=== PATIENT | female | born 1980 | race Caucasian/White ===

== ENCOUNTER 2016-08-19 18:32 | Emergency (ER) | payer OTHER ==
--- NOTE | 2016-08-19 20:47 | ED CLINICAL REPORT ---
Clinical Report - Physicians/Mid Levels [facility] [address] [place] [address] 08/19/2016 18:33 Patient: DREW WINCHESTER Time Seen: 1845; upon arrival, initial patient contact, initial documentation, patient care assumed. Arrived- By private vehicle. Historian- patient. HISTORY OF PRESENT ILLNESS Chief Complaint: ABDOMINAL PAIN. At its maximum, severity described as moderate. When seen in the E.D., severity described as moderate. Modifying factors- worsened by deep breaths. Not relieved by anything. It is described as "pain" and burning and pressure. No radiation. It is described as located in the epigastric area and in the upper abdomen. This started today and is still present. It was abrupt in onset and has been constant. The patient has had nausea. No loss of appetite. She has had moderate vomiting (x6 episodes today). The vomiting has occurred several times. No bilious emesis, feculent emesis, blood-tinged emesis, coffee-grounds emesis or frankly bloody emesis. No unusually dark emesis. No additional abdominal pain. (says pain feels similar to when she blood clot, but also feels like her pancreatitis, or her ibs). No recent travel. Similar symptoms previously: Chronically, as bad. Recent medical care: Not recently seen/assessed. REVIEW OF SYSTEMS No constipation, black stools, hematemesis, difficulty with urination or pain with urination. No urinary frequency, bloody stools, fever, difficulty breathing or cough. Denies current . The patient complains of moderate, pressure-like, burning central chest pain, currently moderate, associated with nausea and vomiting. No radiation or modifying factors. All systems otherwise negative, except as recorded above. PAST HISTORY See nurses notes. PROBLEMS: Lumbar Strain. Pelvic Inflammatory Disease. URI. Strep Throat. Pharyngitis. Sick Contact. Pneumonia. Back Pain. Back Injury. Lumbar Radiculopathy. Rectal Bleed. Constipation. Proctitis. UTI - Urinary Tract Infection. Gastroenteritis. Pulmonary Embolism. Asthma. Allergic Rhinitis. Sinusitis. Bronchitis. Cellulitis. Atypical Chest Pain. Acute Pain. Anemia. Pancreatitis. Hypertension. Migraine Headache. Depression. Anxiety Reaction. Irritable Bowel Syndrome. Bipolar Disorder. DVT - Deep Venous Thrombosis. --18:43 Denisse Quintero R.N. ADDITIONAL SURGERIES: Ablation (cervical). Cholecystectomy. Colonoscopy. . Endoscopy. [place]oss[place] filter. Hernia Repair. Umbilical Hernia Repair. --18:43 Denisse Quintero R.N. SOCIAL HISTORY Light tobacco smoker. Occasional alcohol use. History of occasional drug use: marijuana. No recent travel. Is a local resident. She lives with spouse. FAMILY HISTORY Negative. ADDITIONAL NOTES The nursing notes have been reviewed with agreement regarding the chief complaint, HPI, ROS, PMH and patient medications and allergies. PHYSICAL EXAM Vital Signs: 08/19/2016 18:48 BP: 117/94. HR: 108. RR: 18. O2 saturation: 100%. Pain level now: 8/10. Have been reviewed as abnormal. Blood pressure normal. Tachycardic. Respiratory rate normal. Temperature: 98.3 oral- temperature normal. Oxygen saturation normal. Appearance: Alert. Oriented X3. No acute distress. Eyes: Pupils equal, round and reactive to light. Eyes normal inspection. ENT: Ears normal. Nose normal. Pharynx normal. Neck: Normal inspection. Neck supple. CVS: Heart rate / rhythm abnormal. Tachycardia (ventricular rate = 104). Heart sounds normal. Pulses normal. Respiratory: No respiratory distress. Breath sounds normal. Chest nontender. Abdomen: Soft and nontender. Bowel sounds normal. No organomegaly. No mass. Mildly obese. Back: Normal inspection. Skin: Skin warm and dry. Normal skin color. No rash. Normal skin turgor. Extremities: Extremities exhibit normal ROM. No lower extremity edema. Neuro: Oriented X 3. No motor deficit. No sensory deficit. LABS, X-RAYS, AND EKG EKG: EKG time: (1913). No acute process. No acute ischemia. Normal EKG. Rate: 97. Normal EKG. The study has been interpreted contemporaneously by me (and dr hilario). The EKG appears to be a good tracing. Interpretation time: 1914. PROGRESS AND PROCEDURES Course of Care: 18:56 08/19/16. pt has lexus for some narcs, #11 er visits, recommendations no narcs or benzos for chronic conditions, see report for full details. Patient counseled in person regarding the patient's stable condition, test results and diagnosis. 2036. Differential Diagnosis: I considered gastritis, peptic ulcer disease, ischemia, gastroesophageal reflux disease, gastroparesis, Crohn's disease, ulcerative colitis, small bowel obstruction, colonic obstruction, colon cancer, gastroenteritis, pancreatitis, viral syndrome, enterocolitis, urinary tract infection, hepatitis, sepsis, drugs, hyperthyroidism, , myocardial infarction and psychogenic etiology as a possible cause of vomiting in this patient. This is a partial list of diagnoses considered. Above considerations are based on history, physical exam, reassessment, laboratory data and EKG. Differential diagnosis was discussed with patient. Disposition: Discharged home in good and improved condition (20:47). Condition: good and stable. CLINICAL IMPRESSION Intractable vomiting with nausea. No dehydration or volume depletion. Not bilious. INSTRUCTIONS Take clear liquids only (frequent sips) for the next 24 hours until better. May continue medications with sips only. Advance diet as tolerated. Avoid. Warnings: GENERAL WARNINGS: Return or contact your physician immediately if your condition worsens or changes unexpectedly, if not improving as expected, or if other problems arise. SPECIFICALLY, return if you develop pain in the abdomen or pelvis, fever, the inability to keep fluids down, blood in vomitus, blood in diarrhea, fainting or lightheadedness. Prescription Medications: Zofran 4 mg: Take 1 orally every six hours as needed for nausea/vomiting. Dispense ten (10). No refills. Substitution is permissible. Follow-up: Follow up with your doctor in about three days even if well. Call for an appointment. Summary of care provided to patient. Understanding of the discharge instructions verbalized by patient. (Electronically signed by Rukhsana Malcolm A.R.N.P. 08/19/2016 21:19)
--- NOTE | 2016-08-19 20:47 | ED ORDER SUMMARY ---
..... Patient: DREW WINCHESTER OrderSheet [facility] VisitID: [id number] [place] [address] 35y, F Registration Date/Time: 08/19/2016 ORDER SHEET Weight: 99.7 kg (stated) Allergies: Lamictal GENERAL ORDERS: CBC w Diff Urgent (18:51 08/19/2016 HBivens A.R.N.P.) (Ack 18:56 Ashtyn) (19:06 DDavis R.N.) CMP Urgent (18:51 08/19/2016 HBivens A.R.N.P.) (Ack 18:57 Ashtyn) (19:06 DDavis R.N.) UA-Culture if indicated Urgent (18:51 08/19/2016 HBivens A.R.N.P.) (Ack 18:57 Ashtyn) (19:36 DDavis R.N.) Amylase Urgent (18:51 08/19/2016 HBivens A.R.N.P.) (Ack 18:57 Ashtyn) (19:06 DDavis R.N.) Lipase Urgent (18:51 08/19/2016 HBivens A.R.N.P.) (Ack 18:57 Ashtyn) (19:06 DDavis R.N.) Urine Drug Screen Urgent (18:51 08/19/2016 HBivens A.R.N.P.) (Ack 18:57 Ashtyn) (19:36 DDavis R.N.) CPK Urgent (18:51 08/19/2016 HBivens A.R.N.P.) (Ack 18:57 OHotilia) (19:06 DDavis R.N.) Troponin-I Urgent (18:51 08/19/2016 HBivens A.R.N.P.) (Ack 18:57 Niurkanandez) (19:06 DDavis R.N.) D-Dimer Urgent (18:51 08/19/2016 HBivens A.R.N.P.) (Ack 18:57 Ashtyn) (19:06 DDavis R.N.) EKG - ER Stat (18:51 08/19/2016 HBivens A.R.N.P.) (Ack 18:56 [facility] (19:23 [facility] MEDICATION ORDERS: IV FLUIDS: IV NS : initial bolus 1000 mL (1000 mL/hr), then none - for X1 (NOW) (18:50 08/19/2016 HBivens A.R.N.P.) (19:13 LSullivan R.N.) Zofran IV 4 mg (NOW) (18:50 08/19/2016 HBivens A.R.N.P.) (19:13 LSullivan R.N.) IV Saline Lock (18:51 08/19/2016 HBivens A.R.N.P.) (19:07 DDavis R.N.) Toradol IV 30 mg (NOW) (19:11 08/19/2016 HBivens A.R.N.P.) (19:35 DDavis R.N.) ORDER SHEET NOTES: [Electronically signed by Anam Estrada R.N. (20:57 08/19/2016)] [Electronically signed by Rukhsana MalcolmR.N.PBharat (21:19 08/19/2016)] [Electronically locked/signed by Anam Estrada R.N. (20:57 08/19/2016)]
--- NOTE | 2016-08-19 20:47 | ED NURSING NOTES ---
Clinical Report - Nurses [facility] [place] [address] 08/19/2016 18:33 Patient: DREW WINCHESTER TRIAGE Triage time 18:40. Acuity: LEVEL 3. Chief Complaint: ABDOMINAL PAIN, NAUSEA and VOMITING and (and chest hurts). Alert. --18:46 Denisse Quintero R.N. 18:48 08/19/16. BP: 117/94. HR: 108. RR: 18. O2 saturation: 100%. Pain level now: 12/29. --18:49 Denisse Quintero R.N. 18:51 08/19/16. Temp: 98.3 F. --18:51 Denisse Quintero R.N. Weight: 99.7 kg stated. Height/Length: 68 inches Per Patient. BMI: 33.4. --18:47 Denisse Quintero R.N. Medications PriLOSEC Oral. --18:42 Denisse Quintero R.N. RisperiDONE Oral. --18:42 Denisse Quintero R.N. TraZODone HCl Oral. --18:42 Denisse Quintero R.N. Vistaril Oral, as needed. --18:42 Denisse Quintero R.N. PROzac Oral. --18:42 Denisse Quintero R.N. Allergies Lamictal. --18:42 Denisse Quintero R.N. History Arrived by private vehicle. Historian: patient. Accompanied by (boyfriend). Primary physician (Sandy at [facility]). 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 SOCIAL HX: Light tobacco smoker (cigarette)- less than 1/2 a pack per day. Alcohol use. (seldom). History of drug use: marijuana. SELF HARM ASSESSMENT: A self harm assessment was performed. The patient answered "yes" to the question "Have you recently felt down, depressed, or hopeless?", "Have you noticed less interest or pleasure in doing things?", "Do you have thoughts of harming or killing yourself?" and "Have you ever tried to hurt yourself before today?" and "no" to the question "Are you here because you tried to hurt yourself?", "Have you recently had thoughts about harming or killing others?" and "Do you have any dangerous items in your possession?". The patient reports their behavior. (Pt goes to [facility] for counseling). FALL RISK ASSESSMENT: Fall risk assessment completed. No fall risk identified. ABUSE ASSESSMENT: Abuse assessment: ("yes") The patient was asked "Do you feel safe in your home?". --18:46 Denisse Quintero R.N. PROBLEMS: Lumbar Strain. Pelvic Inflammatory Disease. URI. Strep Throat. Pharyngitis. Sick Contact. Pneumonia. Back Pain. Back Injury. Lumbar Radiculopathy. Rectal Bleed. Constipation. Proctitis. UTI - Urinary Tract Infection. Gastroenteritis. Pulmonary Embolism. Asthma. Allergic Rhinitis. Sinusitis. Bronchitis. Cellulitis. Atypical Chest Pain. Acute Pain. Anemia. Pancreatitis. Hypertension. Migraine Headache. Depression. Anxiety Reaction. Irritable Bowel Syndrome. Bipolar Disorder. DVT - Deep Venous Thrombosis. --18:43 Denisse Quintero R.N. ADDITIONAL SURGERIES: Ablation (cervical). Cholecystectomy. Colonoscopy. . Endoscopy. [place] filter. Hernia Repair. Umbilical Hernia Repair. --18:43 Denisse Quintero R.N. Interventions ID band on patient. To room. --18:46 Denisse Quintero R.N. PHYSICAL ASSESSMENT GENERAL / NEURO / PSYCH: Alert. Oriented X 4. RESPIRATORY: Respirations not labored. CVS: Capillary refill less than 2 seconds. --20:54 Anam Estrada R.N. NURSING PROGRESS NOTES 19:02 08/19/2016 Site #1 started via IV in the right antecubital space with an 20g angiocath, with aseptic technique and good blood return; one attempt. Blood drawn: rainbow set. Labeled in the presence of the patient and sent to the lab. Saline lock flushed with saline (Started by ALIX Salcedo. Sent to lab by RN. Denisse). --19:07 Anam Estrada R.N. ( Patient report received from ALIX Salcedo. Denisse requested a urine sample from the patient and gave her instructions for same.). --19:12 Anam Estrada R.N. 19:03 08/19/2016 Site #2 started via IV in the right antecubital space with an 20g angiocath; one attempt. Blood drawn: rainbow set. Labeled in the presence of the patient and sent to the lab. Saline lock flushed with 10 mL saline. --19:13 Denisse Quintero R.N. 19:03 08/19/2016 Started bag #1 1000 mL IV Fluids IV NS (Saline); at 1000 mL/hr via site #2 via IV pump. Confirmed 5 rights. --19:13 Denisse Quintero R.N. ( I observed Denisse giving the patient Zofran and starting a 1L NS fluid via IV.). --19:13 Anam Estrada R.N. 19:03 08/19/2016 Zofran (Ondansetron HCl) IVP 4 mg given over 2 minute(s) via site #1. Confirmed 5 rights. --19:13 Denisse Quintero R.N. ( Patient requests pain medication. ER provider notified.). --19:14 Anam Estrada R.N. 19:14 08/19/16. Care transferred and report given (to SARANYA Mendieta). --19:14 Denisse Quintero R.N. EKG time: (19:14). EKG was performed by a tech and shown to the ED physician. --19:20 Salma Mendosa 19:35 08/19/2016 Toradol IVP 30 mg given over 2 minute(s) via site #1. Allergies verified and confirmed 5 rights. IV patency established. IV site checked: no pain, redness, or swelling. IV flushed thoroughly pre- and post-medication administration. IVP given by RN. --19:35 Anam Estrada R.N. DISPOSITION / DISCHARGE 20:54 08/19/16. BP: 111/79. HR: 85. RR: 18. O2 saturation: 100% on room air. --20:56 Anam Estrada R.N. Departure time: 20:55. Condition at departure: stable. No learning barriers present. Discharge instructions provided and reviewed with the patient. Reviewed warnings. Reviewed medication(s) side effects, precautions, dosing and course information. Prescription(s) given to the patient. Treatments reviewed. Reviewed referrals for followup. Patient verbalized understanding. Written instructions provided in Jamaican. The patient was discharged home and accompanied by receiving operator. She left the Emergency Department ambulatory and via private vehicle. Library Consultant driving. --20:56 Anam Estrada R.N. 20:05 08/19/2016 IV Fluids IV NS Discontinued: completed. Total amount infused: 1000 mL. IV patency established. IV site checked: no pain, redness, or swelling. IV flushed thoroughly. --20:57 Anam Estrada R.N. 20:55 08/19/2016 Site #1 removed upon discharge (Duplicate item, patient only had one IV, started by Lena. THOMSON). --20:55 Anam Estrada R.N. 20:55 08/19/2016 Site #2 removed upon discharge. Manual pressure and bandaid applied. --20:55 Anam Estrada R.N. Locked/Released at 08/19/2016 20:57 by Anam Estrada R.N.
--- NOTE | 2016-08-19 20:47 | ED NURSING NOTES ---
Clinical Report - Nurses [facility] [place] [address] 08/19/2016 18:33 Patient: DREW WINCHESTER TRIAGE Triage time 18:40. Acuity: LEVEL 3. Chief Complaint: ABDOMINAL PAIN, NAUSEA and VOMITING and (and chest hurts). Alert. --18:46 Denisse Quintero R.N. 18:48 08/19/16. BP: 117/94. HR: 108. RR: 18. O2 saturation: 100%. Pain level now: 12/29. --18:49 Denisse Quintero R.N. 18:51 08/19/16. Temp: 98.3 F. --18:51 Denisse Quintero R.N. Weight: 99.7 kg stated. Height/Length: 68 inches Per Patient. BMI: 33.4. --18:47 Denisse Quintero R.N. Medications PriLOSEC Oral. --18:42 Denisse Quintero R.N. RisperiDONE Oral. --18:42 Denisse Quintero R.N. TraZODone HCl Oral. --18:42 Denisse Quintero R.N. Vistaril Oral, as needed. --18:42 Denisse Quintero R.N. PROzac Oral. --18:42 Denisse Quintero R.N. Allergies Lamictal. --18:42 Denisse Quintero R.N. History Arrived by private vehicle. Historian: patient. Accompanied by (boyfriend). Primary physician (Sandy at [facility]). 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 SOCIAL HX: Light tobacco smoker (cigarette)- less than 1/2 a pack per day. Alcohol use. (seldom). History of drug use: marijuana. SELF HARM ASSESSMENT: A self harm assessment was performed. The patient answered "yes" to the question "Have you recently felt down, depressed, or hopeless?", "Have you noticed less interest or pleasure in doing things?", "Do you have thoughts of harming or killing yourself?" and "Have you ever tried to hurt yourself before today?" and "no" to the question "Are you here because you tried to hurt yourself?", "Have you recently had thoughts about harming or killing others?" and "Do you have any dangerous items in your possession?". The patient reports their behavior. (Pt goes to [facility] for counseling). FALL RISK ASSESSMENT: Fall risk assessment completed. No fall risk identified. ABUSE ASSESSMENT: Abuse assessment: ("yes") The patient was asked "Do you feel safe in your home?". --18:46 Denisse Quintero R.N. PROBLEMS: Lumbar Strain. Pelvic Inflammatory Disease. URI. Strep Throat. Pharyngitis. Sick Contact. Pneumonia. Back Pain. Back Injury. Lumbar Radiculopathy. Rectal Bleed. Constipation. Proctitis. UTI - Urinary Tract Infection. Gastroenteritis. Pulmonary Embolism. Asthma. Allergic Rhinitis. Sinusitis. Bronchitis. Cellulitis. Atypical Chest Pain. Acute Pain. Anemia. Pancreatitis. Hypertension. Migraine Headache. Depression. Anxiety Reaction. Irritable Bowel Syndrome. Bipolar Disorder. DVT - Deep Venous Thrombosis. --18:43 Denisse Quintero R.N. ADDITIONAL SURGERIES: Ablation (cervical). Cholecystectomy. Colonoscopy. . Endoscopy. [place] filter. Hernia Repair. Umbilical Hernia Repair. --18:43 Denisse Quintero R.N. Interventions ID band on patient. To room. --18:46 Denisse Quintero R.N. PHYSICAL ASSESSMENT GENERAL / NEURO / PSYCH: Alert. Oriented X 4. RESPIRATORY: Respirations not labored. CVS: Capillary refill less than 2 seconds. --20:54 Anam Estrada R.N. NURSING PROGRESS NOTES 19:02 08/19/2016 Site #1 started via IV in the right antecubital space with an 20g angiocath, with aseptic technique and good blood return; one attempt. Blood drawn: rainbow set. Labeled in the presence of the patient and sent to the lab. Saline lock flushed with saline (Started by ALIX Salcedo. Sent to lab by RN. Denisse). --19:07 Anam Estrada R.N. ( Patient report received from ALIX Salcedo. Denisse requested a urine sample from the patient and gave her instructions for same.). --19:12 Anam Estrada R.N. 19:03 08/19/2016 Site #2 started via IV in the right antecubital space with an 20g angiocath; one attempt. Blood drawn: rainbow set. Labeled in the presence of the patient and sent to the lab. Saline lock flushed with 10 mL saline. --19:13 Denisse Quintero R.N. 19:03 08/19/2016 Started bag #1 1000 mL IV Fluids IV NS (Saline); at 1000 mL/hr via site #2 via IV pump. Confirmed 5 rights. --19:13 Denisse Quintero R.N. ( I observed Denisse giving the patient Zofran and starting a 1L NS fluid via IV.). --19:13 Anam Estrada R.N. 19:03 08/19/2016 Zofran (Ondansetron HCl) IVP 4 mg given over 2 minute(s) via site #1. Confirmed 5 rights. --19:13 Denisse Quintero R.N. ( Patient requests pain medication. ER provider notified.). --19:14 Anam Estrada R.N. 19:14 08/19/16. Care transferred and report given (to SARANYA Mendieta). --19:14 Denisse Quintero R.N. EKG time: (19:14). EKG was performed by a tech and shown to the ED physician. --19:20 Salma Mendosa 19:35 08/19/2016 Toradol IVP 30 mg given over 2 minute(s) via site #1. Allergies verified and confirmed 5 rights. IV patency established. IV site checked: no pain, redness, or swelling. IV flushed thoroughly pre- and post-medication administration. IVP given by RN. --19:35 Anam Estrada R.N. DISPOSITION / DISCHARGE 20:54 08/19/16. BP: 111/79. HR: 85. RR: 18. O2 saturation: 100% on room air. --20:56 Anam Estrada R.N. Departure time: 20:55. Condition at departure: stable. No learning barriers present. Discharge instructions provided and reviewed with the patient. Reviewed warnings. Reviewed medication(s) side effects, precautions, dosing and course information. Prescription(s) given to the patient. Treatments reviewed. Reviewed referrals for followup. Patient verbalized understanding. Written instructions provided in Rwandan. The patient was discharged home and accompanied by printer technician. She left the Emergency Department ambulatory and via private vehicle. Blending Line Attendant driving. --20:56 Anam Estrada R.N. 20:05 08/19/2016 IV Fluids IV NS Discontinued: completed. Total amount infused: 1000 mL. IV patency established. IV site checked: no pain, redness, or swelling. IV flushed thoroughly. --20:57 Anam Estrada R.N. 20:55 08/19/2016 Site #1 removed upon discharge (Duplicate item, patient only had one IV, started by Lena. THOMSON). --20:55 Anam Estrada R.N. 20:55 08/19/2016 Site #2 removed upon discharge. Manual pressure and bandaid applied. --20:55 Anam Estrada R.N. Locked/Released at 08/19/2016 20:57 by Anam Estrada R.N.
--- NOTE | 2016-08-19 20:47 | ED ORDER SUMMARY ---
..... Patient: DREW WINCHESTER OrderSheet [facility] VisitID: [id number] [place] [address] 35y, F Registration Date/Time: 08/19/2016 ORDER SHEET Weight: 99.7 kg (stated) Allergies: Lamictal GENERAL ORDERS: CBC w Diff Urgent (18:51 08/19/2016 HBivens A.R.N.P.) (Ack 18:56 Ashtyn) (19:06 DDavis R.N.) CMP Urgent (18:51 08/19/2016 HBivens A.R.N.P.) (Ack 18:57 Ashtyn) (19:06 DDavis R.N.) UA-Culture if indicated Urgent (18:51 08/19/2016 HBivens A.R.N.P.) (Ack 18:57 Ashtyn) (19:36 DDavis R.N.) Amylase Urgent (18:51 08/19/2016 HBivens A.R.N.P.) (Ack 18:57 Ashtyn) (19:06 DDavis R.N.) Lipase Urgent (18:51 08/19/2016 HBivens A.R.N.P.) (Ack 18:57 Ashtyn) (19:06 DDavis R.N.) Urine Drug Screen Urgent (18:51 08/19/2016 HBivens A.R.N.P.) (Ack 18:57 Ashtyn) (19:36 DDavis R.N.) CPK Urgent (18:51 08/19/2016 HBivens A.R.N.P.) (Ack 18:57 OHotilia) (19:06 DDavis R.N.) Troponin-I Urgent (18:51 08/19/2016 HBivens A.R.N.P.) (Ack 18:57 Niurkanandez) (19:06 DDavis R.N.) D-Dimer Urgent (18:51 08/19/2016 HBivens A.R.N.P.) (Ack 18:57 Ashtyn) (19:06 DDavis R.N.) EKG - ER Stat (18:51 08/19/2016 HBivens A.R.N.P.) (Ack 18:56 [facility] (19:23 [facility] MEDICATION ORDERS: IV FLUIDS: IV NS : initial bolus 1000 mL (1000 mL/hr), then none - for X1 (NOW) (18:50 08/19/2016 HBivens A.R.N.P.) (19:13 LSullivan R.N.) Zofran IV 4 mg (NOW) (18:50 08/19/2016 HBivens A.R.N.P.) (19:13 LSullivan R.N.) IV Saline Lock (18:51 08/19/2016 HBivens A.R.N.P.) (19:07 DDavis R.N.) Toradol IV 30 mg (NOW) (19:11 08/19/2016 HBivens A.R.N.P.) (19:35 DDavis R.N.) ORDER SHEET NOTES: [Electronically signed by Anam Estrada R.N. (20:57 08/19/2016)] [Electronically signed by Rukhsana MalcolmR.N.PBharat (21:19 08/19/2016)] [Electronically locked/signed by Anam Estrada R.N. (20:57 08/19/2016)]
--- NOTE | 2016-08-19 21:20 | ED MED RECONCILIATION SUMMARY ---
Patient: DREW WINCHESTER Medication Reconciliation Report [facility] VisitID: [id number] [place] [address] 35y, F Registration Date/Time: 08/19/2016 Weight: 99.7 kg Height/Length: 68 in. BMI: 33.4 ALLERGIES: Lamictal The patient's Home Medications are listed below: THE FOLLOWING MEDICATIONS NEED TO BE RECONCILED: PriLOSEC Oral PROzac Oral RisperiDONE Oral TraZODone HCl Oral Vistaril Oral The source(s) of the original Home Medication information: Not obtained. The following Medications were given to the patient in the Emergency Department: IV NS IV Fluids bolus 0, then 1000 mL/hr, administered: 08/19/2016 7:03:00 PM Zofran [IVP] IVP 4 mg, administered: 08/19/2016 7:03:00 PM Toradol [IVP] IVP 30 mg, administered: 08/19/2016 7:35:00 PM The following Medications were prescribed to the patient: Zofran 4 mg: Take 1 orally every six hours as needed for nausea/vomiting. Dispense ten (10). No refills. Substitution is permissible. -- Rukhsana Malcolm A.R.N.P.
--- NOTE | 2016-08-19 21:20 | ED MAR SUMMARY ---
..... Medication Administration Record [facility] [address] [place] [address] Patient: DREW WINCHESTER Visit ID: [id number] 35y, F Weight: 99.7 kg Height/Length: 68 in BMI: 33.4 ALLERGIES: Lamictal Start 19:03 08/19/2016 Denisse Quintero R.N., Stop 20:05 08/19/2016 Anam Estrada R.N. Medication Administered: IV NS (SALINE), Dose: IV Fluids, Rate: 1000 mL/hr, Dispensed: 1000 mL bag, Site: #2 right AC. Medication Ordered: IV NS : initial bolus 1000 mL (1000 mL/hr), then none - for X1 (NOW). Given 19:03 08/19/2016 Denisse Quintero R.N. Medication Administered: ZOFRAN [IVP] (ONDANSETRON HCL), Dose: 4 mg IVP over 2 minute(s), Site: #1 right AC. Medication Ordered: Zofran IV 4 mg (NOW). Given 19:08/19/2016 Anam Estrada R.N. Medication Administered: TORADOL [IVP], Dose: 30 mg IVP over 2 minute(s), Site: #1 right AC. Medication Ordered: Toradol IV 30 mg (NOW).
--- NOTE | 2016-08-19 21:20 | ED MAR SUMMARY ---
..... Medication Administration Record [facility] [address] [place] [address] Patient: DREW WINCHESTER Visit ID: [id number] 35y, F Weight: 99.7 kg Height/Length: 68 in BMI: 33.4 ALLERGIES: Lamictal Start 19:03 08/19/2016 Denisse Quintero R.N., Stop 20:05 08/19/2016 Anam Estrada R.N. Medication Administered: IV NS (SALINE), Dose: IV Fluids, Rate: 1000 mL/hr, Dispensed: 1000 mL bag, Site: #2 right AC. Medication Ordered: IV NS : initial bolus 1000 mL (1000 mL/hr), then none - for X1 (NOW). Given 19:03 08/19/2016 Denisse Quintero R.N. Medication Administered: ZOFRAN [IVP] (ONDANSETRON HCL), Dose: 4 mg IVP over 2 minute(s), Site: #1 right AC. Medication Ordered: Zofran IV 4 mg (NOW). Given 19:08/19/2016 Anam Estrada R.N. Medication Administered: TORADOL [IVP], Dose: 30 mg IVP over 2 minute(s), Site: #1 right AC. Medication Ordered: Toradol IV 30 mg (NOW).
--- NOTE | 2016-08-19 21:20 | ED MED RECONCILIATION SUMMARY ---
Patient: DREW WINCHESTER Medication Reconciliation Report [facility] VisitID: [id number] [place] [address] 35y, F Registration Date/Time: 08/19/2016 Weight: 99.7 kg Height/Length: 68 in. BMI: 33.4 ALLERGIES: Lamictal The patient's Home Medications are listed below: THE FOLLOWING MEDICATIONS NEED TO BE RECONCILED: PriLOSEC Oral PROzac Oral RisperiDONE Oral TraZODone HCl Oral Vistaril Oral The source(s) of the original Home Medication information: Not obtained. The following Medications were given to the patient in the Emergency Department: IV NS IV Fluids bolus 0, then 1000 mL/hr, administered: 08/19/2016 7:03:00 PM Zofran [IVP] IVP 4 mg, administered: 08/19/2016 7:03:00 PM Toradol [IVP] IVP 30 mg, administered: 08/19/2016 7:35:00 PM The following Medications were prescribed to the patient: Zofran 4 mg: Take 1 orally every six hours as needed for nausea/vomiting. Dispense ten (10). No refills. Substitution is permissible. -- Rukhsana Malcolm A.R.N.P.
--- NOTE | 2016-08-19 21:20 | ED DISCHARGE INSTRUCTIONS ---
Patient: DREW WINCHESTER General Instructions [facility] VisitID: [id number] [place] [address] 35y, F Registration Date/Time: 08/19/2016 Intractable vomiting with nausea. No dehydration or volume depletion. Not bilious. INSTRUCTIONS Take clear liquids only (frequent sips) for the next 24 hours until better. May continue medications with sips only. Advance diet as tolerated. Avoid. Warnings: GENERAL WARNINGS: Return or contact your physician immediately if your condition worsens or changes unexpectedly, if not improving as expected, or if other problems arise. SPECIFICALLY, return if you develop pain in the abdomen or pelvis, fever, the inability to keep fluids down, blood in vomitus, blood in diarrhea, fainting or lightheadedness. Prescription Medications: Zofran 4 mg: Take 1 orally every six hours as needed for nausea/vomiting. Dispense ten (10). No refills. Substitution is permissible. Follow-up: Follow up with your doctor in about three days even if well. Call for an appointment. Summary of care provided to patient. Understanding of the discharge instructions verbalized by patient. ADDITIONAL INFORMATION Vomiting [6Yr-Adult] Vomiting is a common symptom that may be due to different causes. These include gastroenteritis ("stomach flu"), food poisoning and gastritis. There are other more serious causes of vomiting which may be hard to diagnose early in the illness. Therefore, it is important to watch for the warning signs listed below. The main danger from repeated vomiting is dehydration. This is due to excess loss of water and minerals from the body. When this occurs, body fluids must be replaced. Home Care: If symptoms are severe, rest at home for the next 24 hours. You may use acetaminophen (Tylenol) or ibuprofen (Motrin, Advil) to control fever, unless another medicine was prescribed. [NOTE : If you have chronic liver or kidney disease or ever had a stomach ulcer or GI bleeding, talk with your doctor before using these medicines.] (Aspirin should never be used in anyone under 18 years of age who is ill with a fever. It may cause severe liver damage.) Avoid tobacco and alcohol use, which may worsen your symptoms. If medicines for vomiting were prescribed, take as directed. Once vomiting stops, then follow these guidelines: During The First 12-24 Hours follow the diet below: FRUIT JUICES: Apple, grape juice, clear fruit drinks, and electrolyte replacement drinks. BEVERAGES: Soft drinks without caffeine; mineral water (plain or flavored), decaffeinated tea and coffee. SOUPS: Clear broth, consomm and bouillon DESSERTS: Plain gelatin, popsicles and fruit juice bars. As you feel better, you may add 6-8 ounces of yogurt per day. During The Next 24 Hours you may add the following to the above: Hot cereal, plain toast, bread, rolls, crackers Plain noodles, rice, mashed potatoes, chicken noodle or rice soup Unsweetened canned fruit (avoid pineapple), bananas Limit caffeine and chocolate. No spices or seasonings except salt. During The Next 24 Hours Gradually resume a normal diet, as you feel better and your symptoms lessen. Follow Up with your doctor as advised if you are not improving over the next 2-3 days. Get Prompt Medical Attention if any of the following occur: Constant right-sided lower abdominal pain or increasing general abdominal pain Continued vomiting (unable to keep liquids down) for 24 hours Frequent diarrhea (more than 5 times a day); blood (red or black color) or mucus in diarrhea Reduced urine output or extreme thirst Weakness, dizziness or fainting Unusually drowsy or confused Fever of 100.4F (38C) oral or higher, not better with fever medication Yellow color of the eyes or skin Clear Liquid Diet Clear liquids are any liquid that you can see through as well as those that are very easy to digest. This is used while the body is recovering from irritation or infection of the stomach or intestinal tract. It may also be used before special procedures or surgery. This diet is to be used no more than three days. You may include the following items. Adults Adults should drink a total of 23 quarts of liquid per day. It may be easier to drink small frequent servings rather than a few large ones. Liquids can include: Fruit juices.Strained orange juice or lemonade (no pulp), apple, grape and cranberry juice, clear fruit drinks, sports drinks Beverages.Sport drinks, sodas, mineral water (plain or flavored), tea, black coffee, liquid gelatin (add twice the recommended amount of water) Soups.Clear broth, consomm, bouillon Desserts.Plain gelatin, popsicles, fruit juice bars Children Over 2 years old The following liquids are acceptable for children over age 2: Fruit juices.Strained orange juice or lemonade (no pulp), apple, grape and cranberry juice, clear fruit drinks Beverages. Sports drinks, sodas, mineral water (plain or flavored), tea, liquid gelatin (add twice the recommended amount of water) Soups. Clear broth, consomm, bouillon Desserts. Plain gelatin, popsicles, fruit juice bars Children under 2 years old Oral rehydration fluids such are available at drug stores and most grocery stores without a prescription. Mitchell Diet A bland diet is used for patients with an upset stomach. It consists of foods that are mild and easy to digest. It is better to eat small frequent meals rather than three large meals a day. BEVERAGES OK: Fruit juices, non-caffeinated teas and coffee, non-carbonated handley AVOID: Carbonated beverage, caffeinated tea and coffee, all alcoholic beverages BREAD OK: Refined white, wheat or rye bread, oma or soda crackers, Norma toast, plain rolls, bagels AVOID: Whole-grain bread CEREAL OK: Refined cereals: cooked or ready to eat AVOID: Whole grain cereals and granola, or those containing bran, seeds or nuts DESSERTS OK: Peanut butter and all others except those to "avoid" AVOID: Chocolate, cocoa, coconut, popcorn, nuts, seeds, jam, marmalade FRUITS OK: Canned, cooked, frozen or fresh fruits without seeds or tough skin AVOID: Olives, skin and seeds of fruit MEATS OK: All fresh or preserved meat, fish and fowl AVOID: Any that are prepared with those spices to "avoid" CHEESE & EGGS OK: Eggs, cottage cheese, cream cheese, other cheeses AVOID: All cheeses made with those spices to "avoid" POTATOES & PASTA OK: Potato, rice, macaroni, noodles, spaghetti AVOID: None SOUPS OK: All soups without heavy seasoning AVOID: Soups made with those spices to "avoid" VEGETABLES OK: Canned, cooked, fresh or frozen mildly flavored vegetables without seeds, skins or coarse fiber AVOID: Vegetables prepared with those spices to "avoid"; skin and seeds of vegetables and those with coarse fiber SPICES OK: Salt, lemon and [place] juice, vinegar, all extracts, mame, cinnamon, thyme, mace, allspice, paprika AVOID: [place] powder, cloves, pepper, seed spices, garlic, gravy pickles, highly seasoned salad dressings Clear Liquid Diet Clear liquids are any liquid that you can see through as well as those that are very easy to digest. This is used while the body is recovering from irritation or infection of the stomach or intestinal tract. It may also be used before special procedures or surgery. This diet is to be used no more than three days. You may include the following items. Adults Adults should drink a total of 23 quarts of liquid per day. It may be easier to drink small frequent servings rather than a few large ones. Liquids can include: Fruit juices.Strained orange juice or lemonade (no pulp), apple, grape and cranberry juice, clear fruit drinks, sports drinks Beverages.Sport drinks, sodas, mineral water (plain or flavored), tea, black coffee, liquid gelatin (add twice the recommended amount of water) Soups.Clear broth, consomm, bouillon Desserts.Plain gelatin, popsicles, fruit juice bars Children Over 2 years old The following liquids are acceptable for children over age 2: Fruit juices.Strained orange juice or lemonade (no pulp), apple, grape and cranberry juice, clear fruit drinks Beverages. Sports drinks, sodas, mineral water (plain or flavored), tea, liquid gelatin (add twice the recommended amount of water) Soups. Clear broth, consomm, bouillon Desserts. Plain gelatin, popsicles, fruit juice bars Children under 2 years old Oral rehydration fluids such are available at drug stores and most grocery stores without a prescription. Ondansetron Oral disintegrating tablet What is this medicine? ONDANSETRON (on LUIS MIGUEL se sarita) is used to treat nausea and vomiting caused by chemotherapy. It is also used to prevent or treat nausea and vomiting after surgery. How should I use this medicine? These tablets are made to dissolve in the mouth. Do not try to push the tablet through the foil backing. With dry hands, peel away the foil backing and gently remove the tablet. Place the tablet in the mouth and allow it to dissolve, then swallow. While you may take these tablets with water, it is not necessary to do so. Talk to your diazo technician regarding the use of this medicine in children. Special care may be needed. What side effects may I notice from receiving this medicine? Side effects that you should report to your doctor or health daycare manager as soon as possible: allergic reactions like skin rash, itching or hives, swelling of the face, lips, or tongue breathing problems dizziness fast or irregular heartbeat feeling faint or lightheaded, falls fever and chills swelling of the hands and feet tightness in the chest Side effects that usually do not require medical attention (report to your doctor or health daycare manager if they continue or are bothersome): constipation or diarrhea headache What may interact with this medicine? Do not take this medicine with any of the following medications: -apomorphine -cisapride -dofetilide -dronedarone -pimozide -thioridazine -ziprasidone This medicine may also interact with the following medications: -carbamazepine -phenytoin -rifampicin -tramadol -other medicines that prolong the QT interval (cause an abnormal heart rhythm) What if I miss a dose? If you miss a dose, take it as soon as you can. If it is almost time for your next dose, take only that dose. Do not take double or extra doses. Where should I keep my medicine? Keep out of the reach of children. Store between 2 and 30 degrees C (36 and 86 degrees F). Throw away any unused medicine after the expiration date. What should I tell my health care provider before I take this medicine? They need to know if you have any of these conditions: heart disease history of irregular heartbeat liver disease low levels of magnesium or potassium in the blood an unusual or allergic reaction to ondansetron, granisetron, other medicines, foods, dyes, or preservatives or trying to get breast-feeding What should I watch for while using this medicine? Check with your doctor or health daycare manager as soon as you can if you have any sign of an allergic reaction. You have been given the following additional information: Vomiting (6Y-Adult) Diet, Clear Liquid Diet, Mitchell (Adult) Diet, Clear Liquid Ondansetron Oral disintegrating tablet (Electronically signed by Rukhsana Malcolm A.R.N.P. 08/19/2016 21:19)
== END 2016-08-19 20:50 | disposition home or self-care (01) ==
LOC: ED SRH 18:32
DX: R11.2 Nausea with vomiting, unspecified (principal); I10 Essential (primary) hypertension; F17.210 Nicotine dependence, cigarettes, uncomplicated; Z88.8 Allergy status to other drugs, medicaments and biological substances; Z79.899 Other long term (current) drug therapy
CPT/HCPCS: 90004; 90100; 90469; 90616; 91556; 92235; 92530; 92610; 92760; 92761; 92762; 92763; 92764; 92765; 92766; 92767; 95059